=== PATIENT | male | born 1950 | race Caucasian/White ===

== ENCOUNTER 2018-08-17 19:31 | Emergency (ER) | payer SELFPAY ==
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
[2018-08-18 02:44] VITALS: BP 194/97
[2018-08-18 02:45] VITALS: PULSE 80; RESP 22; TEMP 98.4; O2SAT 97
--- NOTE | 2018-08-18 23:18 | CARD ---
APPROVED REPORT Date of service: 08/17/2018 EKG Measurement Heart [id number] CO [id number] <Conclusion> Normal sinus rhythm Possible Left atrial enlargement Left axis deviation Nonspecific T wave abnormality Prolonged QT Abnormal ECG
== END 2018-08-17 23:45 | disposition left against medical advice (07) ==
LOC: C.ER 19:31 → MERGE 19:31 → C.ER 23:45
DX: I10 Essential (primary) hypertension (principal); L60.8 Other nail disorders